=== PATIENT | female | born 1960 | race Caucasian/White ===

== ENCOUNTER → 2018-08-05 | Outpatient (CLI) | payer BC | LOC: GMAL 11:53 | PROVIDERS: ATTEND Family Medicine | DX: Z00.00 Encounter for general adult medical examination without abnormal findings (principal) ==

== ENCOUNTER → 2018-09-11 | Outpatient (CLI) | payer BC ==
--- NOTE | 2018-09-13 10:01 | MRI ---
EXAM DESCRIPTION: Lumbar Spine w/o Contrast : Magnetic Resonance Imaging. CLINICAL HISTORY: LOW BACK PAIN COMPARISON: None. TECHNIQUE: Multiplanar, multiple standard sequences, non contrast MRI, lumbar spine. FINDINGS: L5-S1 disc desiccation and moderate disc space loss. Minimal fluid in the anterior disc. Modic type I Modic type II endplate reactive changes. No posterior disc bulge. Bilateral facet arthrosis. Subarticular recesses are patent. Minimally shortened pedicles. Mild canal narrowing. Moderate bilateral foraminal narrowing. L4-5: Normal signal in the disc and disc space preserved. No disc bulging. Bilateral flavum ligament hypertrophy and right facet joint arthrosis. Bilateral shortened pedicles. Mild canal narrowing. Mild narrowing of the left foramen and right foramen is patent. L3-4: Normal signal in the disc with disc space preserved. No posterior bulging. Bilaterally minimally shortened pedicles with mild canal narrowing. Mild disc bulge into the left foramen and mild foraminal narrowing. Right foramen is patent. L2-3: Disc desiccation and disc space preserved. No bulging. Posterior elements unremarkable. Canal and foramina are patent. L1-2: Normal signal in the disc with disc space preserved. No bulging. Posterior elements unremarkable, canal and foramina are patent. Focal circumscribed hyperintense T1 and T2 signal in the L1 vertebral body. Consistent with a hemangioma. T12-L1: Normal signal in the disc with disc space preserved and no bulging. Posterior elements unremarkable. Canal and foramina are patent. Conus terminates at this level. Minimal kyphosis T12-L2. Paravertebral soft tissues are negative. Otherwise normal marrow signal in the remaining vertebral bodies and the posterior elements. Vertebral bodies are not compressed at any level. IMPRESSION: 1. Moderate spondylosis at L5-S1 and possibly spondylitis. Minimal fluid in the anterior disc which is otherwise mostly desiccated. Prominent endplate reactive changes. This is most likely an inflammatory process. If infection of the disc or endplates is suspected, consider follow-up study with gadolinium IV contrast. Moderate bilateral foraminal narrowing. 2. Canal narrowing at other levels mainly due to mildly shortened pedicles which is usually congenital. Canal and foraminal narrowing is not significant at these levels. Electronically signed by: Umesh Maravilla MD 09/13/2018 10:00 AM [facility]
== END ==
LOC: MRI 13:33
PROVIDERS: ATTEND Family Medicine
DX: M54.5 Low back pain (principal); M47.897 Other spondylosis, lumbosacral region

== ENCOUNTER → 2018-09-16 | Outpatient (CLI) | payer BC | LOC: GMAL 10:54 | PROVIDERS: ATTEND Family Medicine | DX: M54.5 Low back pain (principal) ==

== ENCOUNTER → 2018-09-24 | Outpatient (CLI) | payer BC ==
--- NOTE | 2018-09-24 16:56 | MRI ---
EXAM DESCRIPTION: Lumbar Spine w/Contrast: Magnetic Resonance Imaging. CLINICAL HISTORY: LOW BACK PAIN COMPARISON: Noncontrast MRI scan of the lumbar spine 09/11/2018. TECHNIQUE: Multiplanar, MRI, multiple standard sequences, with standard dose Gadolinium IV contrast, lumbar spine. No adverse reactions. FINDINGS: Again noted is moderate narrowing of the L5-S1 disc space with marrow edema in the inferior L5 vertebral body and the superior S1 vertebral body abutting the endplates. This edema enhances with IV contrast. No edema or enhancement in the endplates. Mixed intermediate, hypointense, and hyperintense signal and enhancement in the disc. Not seen in the posterior disc. No epidural soft tissue mass, fluid collection, or enhancement. No paravertebral soft tissue mass, fluid, or enhancement. Normal contrast enhancement of the bilateral exiting L5 nerve roots. Normal signal in the remaining vertebral bodies and posterior elements with no contrast enhancement. Normal signal in the discs with no contrast enhancement. The included cord and conus demonstrate normal contrast enhancement. IMPRESSION: Post gadolinium IV contrast MRI study of the lumbar spine showing no evidence of discitis, osteomyelitis, paravertebral or intraspinal mass or fluid collection at the L5-S1 level. Electronically signed by: Umesh Maravilla MD 09/24/2018 4:55 PM [facility]
== END ==
LOC: MRI 10:43
PROVIDERS: ATTEND Family Medicine
DX: M54.5 Low back pain (principal); R53.83 Other fatigue; M25.50 Pain in unspecified joint

== ENCOUNTER → 2018-12-02 | Outpatient (CLI) | payer BC | LOC: LAB.O 12:19 | PROVIDERS: ATTEND Family Medicine | DX: M25.50 Pain in unspecified joint (principal); I10 Essential (primary) hypertension; R53.82 Chronic fatigue, unspecified ==

== ENCOUNTER → 2019-07-16 | Outpatient (CLI) | payer BC ==
--- NOTE | 2019-07-16 09:12 | RAD ---
EXAM DESCRIPTION: Knee,Left 1 or 2 Views CLINICAL HISTORY: 58 years, Female, Knee pain COMPARISON: None TECHNIQUE: Single view left knee. FINDINGS: Limited examination with a single view of the left knee was obtained in the AP projection. No fracture or deformity or malalignment on this single view noted. Moderate osteopenia is present. IMPRESSION: 1. Osteopenia with normal alignment of the left knee single AP view without evident fracture. Electronically signed by: Lalit Christianson MD 07/16/2019 9:11 AM [facility]
--- NOTE | 2019-07-16 09:13 | RAD ---
EXAM DESCRIPTION: Pelvis CLINICAL HISTORY: 58 years Female, Hip pain COMPARISON: None. FINDINGS: A single view of the bony pelvis demonstrates no fracture of either hip or the superior inferior pubic rami. The bony pelvic ring is intact with intact sacrum and SI joints. No iliac wing fracture noted. IMPRESSION: Negative pelvis one view. Electronically signed by: Lalit Christianson MD 07/16/2019 9:[address] [facility]
== END ==
LOC: RAD 07:44
PROVIDERS: ATTEND Orthopaedic Surgery
DX: M25.552 Pain in left hip (principal); M85.862 Other specified disorders of bone density and structure, left lower leg